=== PATIENT | male | born 1990 ===

== ENCOUNTER 2018-01-19 03:41 | Emergency (ER) | payer SELFPAY ==
--- NOTE | 2018-01-19 06:01 | ED PDOC ---
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 He reports becoming disoriented, "in another universe," and anxious immediately after, prompting the ED visit. PMD: none provided Past Medical History Reviewed: Historical Data, Nursing Documentation, Vital Signs Vital Signs: Last Vital Signs Temp Pulse 128 H 01/19/18 03:43 Resp 17 01/19/18 03:43 BP 134/79 01/19/18 03:43 Pulse Ox 99 01/19/18 03:43 - Medical History PMH: No Chronic Diseases - Surgical History Surgical History: No Surg Hx - Family History Family History: States: Unknown Family Hx - Social History Current smoker - smoking cessation education provided: Yes Alcohol: None Drugs: Denies - Allergies Allergies/Adverse Reactions: Allergies Allergy/AdvReac Type Severity Reaction Status Date / Time No Known Allergies Allergy Verified 01/19/18 03:52 Review of Systems ROS Statement: Except As Marked, All Systems Reviewed And Found Negative Psych: Positive for: Anxiety, Other (feeling "in another universe") Physical Exam - Reviewed Nursing Documentation Reviewed: Yes Vital Signs Reviewed: Yes - Physical Exam Appears: Positive for: No Acute Distress (but anxious appearing) Head Exam: Positive for: ATRAUMATIC, NORMOCEPHALIC Skin: Positive for: Normal Color. Negative for: Rash Eye Exam: Positive for: Conjunctival injection (bilateral) ENT: Positive for: Normal ENT Inspection Neck: Positive for: Normal, Painless ROM, Supple Cardiovascular/Chest: Positive for: Tachycardia Respiratory: Positive for: Normal Breath Sounds. Negative for: Accessory Muscle Use, Respiratory Distress Gastrointestinal/Abdominal: Positive for: Normal Exam, Soft. Negative for: Tenderness Extremity: Positive for: Normal ROM Neurologic/Psych: Positive for: Alert, Oriented (x3) - ECG O2 Sat by Pulse Oximetry: 99 (RA) Pulse Ox Interpretation: Normal Medical Decision Making Medical Decision Making: A/P: 28 year old male presenting with adverse side effects from drug use Time: 404 Initial Plan: --Drug screen --Accucheck --Ativan 1mg PO 630 --Patient is ambulatory, well appearing --Will discharge with --Patient is feeling better, appears well Scribe Attestation: Documented by Zulma Sosa, acting as a scribe for Emmett Burns MD. Provider Scribe Attestation: All medical record entries made by the Scribe were at my direction and personally dictated by me. I have reviewed the chart and agree that the record accurately reflects my personal performance of the history, physical exam, medical decision making, and the department course for this patient. I have also personally directed, reviewed, and agree with the discharge instructions and disposition. Disposition - Clinical Impression Clinical Impression: Synthetic cannabinoid abuse - Disposition Disposition: Routine/Home Disposition Time: 06:30 Condition: STABLE Instructions: Marijuana Use and Addiction Forms: [employer] (Luxem[place]ish) Print Language: ERITREAN
[2018-01-19 06:30] LABS: BARBITURATES, UR NEGATIVE (NEGATIVE); BENZODIAZEPINES, UR NEGATIVE (NEGATIVE); OPIATES, UR NEGATIVE (NEGATIVE)
[2018-01-19 06:41] LABS: PHENCYCLIDINE, UR NEGATIVE (NEGATIVE)
[2018-01-19 06:49] VITALS: BP 124/80; PULSE 64; RESP 16; TEMP 98
[2018-01-20 03:48] VITALS: O2SAT 99
== END 2018-01-19 07:27 | disposition home or self-care (01) ==
LOC: H.ER 03:41
DX: F12.10 Cannabis abuse, uncomplicated (principal)
CPT/HCPCS: 82948; 99284; G0480